=== PATIENT | male | born 1990 | race Caucasian/White ===

== ENCOUNTER 2017-07-07 15:46 | Emergency (ER) | payer SELFPAY ==
[2017-07-07 18:41] LABS: ADD UMIC NO; UR ASCORBIC ACID NEGATIVE (NEGATIVE); UR BILIRUBIN (Dip) NEGATIVE (NEGATIVE); UR BLOOD (Dip) NEGATIVE (NEGATIVE); UR CLARITY CLEAR (CLEAR); UR COLOR YELLOW (YELLOW); UR GLUCOSE (Dip) NEGATIVE (NEGATIVE); UR KETONES (Dip) NEGATIVE (NEGATIVE); UR LEUKOCYTE ESTERASE (Dip) NEGATIVE Leu/ul (NEGATIVE); UR NITRITE (Dip) NEGATIVE (NEGATIVE); UR SPECIFIC GRAVITY (Dip) 1.019 (1.003-1.030); UR TOTAL PROTEIN (Dip) NEGATIVE (NEGATIVE); UR UROBILINOGEN (Dip) NEGATIVE (NEGATIVE)
[2017-07-07] MEDS: HYDROCODONE/APAP (5/325) TAB PO (19:34)
[2017-07-07] MEDS: KETOROLAC 60 MG INJ IM (19:34)
== END 2017-07-07 19:56 | disposition home or self-care (01) ==
LOC: FTE 15:46
DX: S39.91XA Unspecified injury of abdomen, initial encounter (principal); K40.90 Unilateral inguinal hernia, without obstruction or gangrene, not specified as recurrent; Y08.89XA Assault by other specified means, initial encounter
CPT/HCPCS: 76536; 81003; 96372; 99285-25